=== PATIENT | female | born 1975 | race Caucasian/White ===

== ENCOUNTER → 2022-02-20 | Outpatient (CLI) | payer OTHER ==
[2022-02-22 15:10] LABS: HPV 16 Negative (Negative); HPV 18 Negative (Negative); HPV OTHER HR TYPES Negative (Negative)
== END ==
LOC: LAB SHORT 10:23 → LAB 10:23
PROVIDERS: Student in an Organized Health Care Education/Training Program
DX: Z12.4 Encounter for screening for malignant neoplasm of cervix (principal)
CPT/HCPCS: 87624; G0145

== ENCOUNTER → 2024-10-15 | Outpatient (CLI) | payer OTHER ==
[2024-10-15 10:21] LABS: Source, Urine Clean Catch
[2024-10-15 13:33] LABS: Appearance, Urine Clear (Clear); Bilirubin, Urine Neg (Neg); Blood, Urine 1+ (Neg); Color, Urine Yellow (P-Yellow); Glucose Qualitative, Urine Neg (Neg); Ketones, Urine Neg (Neg); Leukocyte Esterase, Urine Neg (Neg); Nitrite, Urine Neg (Neg); Protein, Urine Neg (Neg); Urobilinogen, Urine NORM (Normal); pH, Urine 6.5 (5.0-8.0)
[2024-10-15 13:42] LABS: Bacteria Rare /hpf; Red Blood Cells, Urine 0-2 /hpf (0-2); Squamous Epithelial Cells Few /hpf (Few); White Blood Cells, Urine 0-2 /hpf (0-5)
== END ==
LOC: LAB 10:17 → LAB SHORT 10:17
PROVIDERS: Obstetrics & Gynecology
DX: R30.0 Dysuria (principal)
CPT/HCPCS: 81001

== ENCOUNTER 2024-10-17 10:17 | Day surgery (SDC) | payer OTHER ==
[~2024-10-17] VITALS: Ht 160 cm; Wt 52.0 kg
[2024-10-17] MEDS ORDERED: Lactated Ringer's 1,000 ML IV ONE (11:05)
[2024-10-17] MEDS ORDERED: FentaNYL Citrate 50 MCG/ML 2 ML Injection ONE (12:38)
[2024-10-17] MEDS ORDERED: Midazolam HCl 1MG / ML 2ML Vial ONE (12:38)
[2024-10-17] MEDS ORDERED: propofoL 20 ML IV ONE ×2 (12:38→14:08)
--- NOTE | 2024-10-17 13:13 | NUR ---
10/17/24 1313 JENNY ROSALES DISCHARGE EDUCATION BY THIS RN AT BEDSIDE WITH PT. WARM BLANKET PROVIDED. PT STATES ALL NEEDS MET AT THIS TIME AND ALL QUESTIONS HAVE BEEN ANSWERED.
[2024-10-17] MEDS ORDERED: Ketorolac Tromethamine 30mg Vial ONE (13:41)
[2024-10-17] MEDS ORDERED: Dexamethasone Sod Phos 10 MG/ML 1ML VIAL ONE (13:41)
[2024-10-17] MEDS ORDERED: Ondansetron HCl 2 MG / ML 2ML Vial ONE (13:41)
--- NOTE | 2024-10-17 15:18 | NUR ---
10/17/24 1518 HEAVENLY MOTT PT UP TO THE BATHROOM PRIOR TO DC. SHE ADMITS THAT SHE DID HAVE SOME BURNING WITH URINATION. INFORMED HER THAT IT SHOULD GET BETTER WITH TIME AND FLUIDS. IF WORSE, SHE IS TO CALL THE DOCTOR.
[2024-10-17 15:22] VITALS: BP 125/82
--- NOTE | 2024-10-17 15:24 | NUR ---
10/17/24 1524 AG ALFARO PT TRANSFERED TO STEP DOWN UNIT, PT VSS. ASSISTED PATIENT WITH REPLACING PAD AND PUTTING ON PANTS. SBA TO CHAIR. PT'S TO BEDSIDE. PT TOLERATING PO INTAKE AND DENIES PAIN/NAUSEA. NO MEDICATION NEEDED AT THIS TIME. SMALL AMOUNT BRIGHT, RED BLOOD NOTED WHEN CHANGING PATIENT'S PAD. REPORT GIVEN TO CRISTIAN BURDICK WHEN SHE RETURNED FROM BREAK.
== END 2024-10-17 15:21 | disposition home or self-care (01) ==
LOC: ORSCSDS 10:17
PROVIDERS: Obstetrics & Gynecology
PROC: 0UDB8ZX Extraction of Endometrium, Via Natural or Artificial Opening Endoscopic, Diagnostic (ICD-10-PCS; principal; 2024-10-17 12:30)
DX: N84.0 Polyp of corpus uteri (principal); F41.9 Anxiety disorder, unspecified; F32.A Depression, unspecified; Z87.891 Personal history of nicotine dependence
CPT/HCPCS: 88305; J1100; J1885; J2250; J2405; J2704; J3010

== ENCOUNTER → 2024-11-07 | Outpatient (CLI) | payer OTHER ==
[2024-11-07 13:10] LABS: Source, Urine Clean Catch
[2024-11-07 14:17] LABS: Bilirubin, Urine Neg (Neg); Blood, Urine Neg (Neg); Glucose Qualitative, Urine Neg (Neg); Ketones, Urine Neg (Neg); Leukocyte Esterase, Urine Neg (Neg); Nitrite, Urine Neg (Neg); Protein, Urine Neg (Neg); Urobilinogen, Urine NORM (Normal)
[2024-11-07 14:28] LABS: Appearance, Urine Clear (Clear); Color, Urine Pale Yellow (P-Yellow)
== END ==
LOC: LAB SHORT 13:07 → LAB 13:07
PROVIDERS: Obstetrics & Gynecology
DX: R35.0 Frequency of micturition (principal)
CPT/HCPCS: 81003